=== PATIENT | female | born 1985 | race American Indian/Alaskan Native ===

== ENCOUNTER 2018-09-03 08:14 | Emergency (ER) | payer OTHER ==
[2018-09-03] MEDS ORDERED: NACL 0.9% 1000 ML 1,000 ML IV ONE (09:12)
[2018-09-03 09:42] LABS: Basophils % (Auto) 0.6 % (0.0-1.8); Eosinophils # (Auto) 0.1 K/mm3 (0.0-0.4); Hematocrit 37.2 % (30.3-42.9); Hemoglobin 12.2 gm/dl (10.1-14.3); Lymphocytes # (Auto) 1.9 K/mm3 (1.2-5.4); Lymphocytes % (Auto) 26.4 % (13.4-35.0); Mean Corpuscular HGB Conc 33 % (30-34); Mean Corpuscular Volume 85 fl (79-97); Monocytes # (Auto) 0.5 K/mm3 (0.0-0.8); Monocytes % (Auto) 6.3 % (0.0-7.3); Platelet Count 280 K/mm3 (140-440); Red Cell Distribution Width 15.3 % (13.2-15.2)
[2018-09-03 09:56] LABS: Alanine Aminotransferase 11 units/L (7-56); Albumin 3.5 g/dL (3.9-5); BUN/Creatinine Ratio 17; Blood Urea Nitrogen 10 mg/dL (7-17); Calcium 8.3 mg/dL (8.4-10.2); Hemolysis Index 3
[2018-09-03] MEDS ORDERED: ZOFRAN IV ONE (10:00)
[2018-09-03] MEDS ORDERED: ANTIVERT PO ONE (10:00)
--- NOTE | 2018-09-03 10:02 | Emergency Department Report ---
ED General Adult HPI - General Chief complaint: Dizziness Stated complaint: NAUSEA/DIZZY/DIARRHEA Time Seen by Provider: 09/03/18 09:47 Source: patient Mode of arrival: Ambulatory Limitations: No Limitations - History of Present Illness Initial comments: Patient is a 33-year-old asthmatic female who does have a history of vertigo who is complaining of some dizziness this morning. Patient states that her symptoms are worse when she closes her eyes and lays flat. Patient feels better with sitting up or. Patient denies any sinus congestion sore throat headache fevers or chills. Patient has had some nausea and diarrhea for the past 3 days. She denies any abdominal pain at this time. Patient states she is not actively vomiting she just feels some mild nausea and the nausea is worse when she is laying flat and she started feeling dizzy. Patient describes her dizziness as a spinning sensation. Severity scale (0 -10): 0 - Related Data Previous Rx's Medication Instructions Recorded Last Taken Type Diphenoxylate HCl/Atropine 1 each PO BID PRN #10 tablet 09/03/18 Unknown Rx [Lomotil 2.5-0.025 mg Tablet] Meclizine [Antivert] 25 mg PO TID PRN #10 tablet 09/03/18 Unknown Rx Allergies Allergy/AdvReac Type Severity Reaction Status Date / Time No Known Allergies Allergy Verified 09/03/18 08:19 ED Review of Systems ROS: Stated complaint: NAUSEA/DIZZY/DIARRHEA Other details as noted in HPI Comment: All other systems reviewed and negative ED Past Medical Hx - Social History Smoking Status: Never Smoker Substance Use Type: None - Medications Home Medications: Home Medications Medication Instructions Recorded Confirmed Last Taken Type Diphenoxylate HCl/Atropine 1 each PO BID PRN #10 tablet 09/03/18 Unknown Rx [Lomotil 2.5-0.025 mg Tablet] Meclizine [Antivert] 25 mg PO TID PRN #10 tablet 09/03/18 Unknown Rx ED Physical Exam - General Limitations: No Limitations General appearance: alert, in no apparent distress - Head Head exam: Present: atraumatic, normocephalic - Eye Eye exam: Present: normal appearance - ENT ENT exam: Present: mucous membranes moist - Neck Neck exam: Present: normal inspection - Respiratory Respiratory exam: Present: normal lung sounds bilaterally. Absent: respiratory distress, wheezes, rales, rhonchi - Cardiovascular Cardiovascular Exam: Present: regular rate, normal rhythm. Absent: systolic murmur, diastolic murmur, rubs, gallop - GI/Abdominal GI/Abdominal exam: Present: soft, normal bowel sounds. Absent: distended, tenderness, guarding, rebound, rigid - Extremities Exam Extremities exam: Present: normal inspection - Back Exam Back exam: Present: normal inspection - Neurological Exam Neurological exam: Present: alert, oriented X3 - Psychiatric Psychiatric exam: Present: normal affect, normal mood - Skin Skin exam: Present: warm, dry, intact, normal color. Absent: rash ED Course Vital Signs 09/03/18 09:11 Temperature 98.0 F Pulse Rate 78 Respiratory 18 Rate Blood Pressure 133/90 O2 Sat by Pulse 100 Oximetry ED Medical Decision Making - Lab Data Result diagrams: 09/03/18 09:31 09/03/18 09:31 - Medical Decision Making After being given the Antivert the patient's dizziness when lying flat has started to improve. The patient was hydrated as well for some possible mild dehydration secondary to a diarrheal illness. Patient feeling in improved and will be discharged home` Critical care attestation.: If time is entered above; I have spent that time in minutes in the direct care of this critically ill patient, excluding procedure time. ED Disposition Clinical Impression: Vertigo, Enteritis Disposition: DC-01 TO HOME OR SELFCARE Is pt being admited?: No Does the pt Need Aspirin: No Condition: Stable Instructions: Vertigo (ED), Gastroenteritis (ED) Referrals: QUINTIN ABBOTT MD [Primary Care Provider] - 3-5 Days Time of Disposition: 11:00
[2018-09-03 11:23] VITALS: BP 135/90
== END 2018-09-03 11:17 | disposition home or self-care (01) ==
LOC: ED 08:14
DX: K52.9 Noninfective gastroenteritis and colitis, unspecified (principal)
CPT/HCPCS: 36415; 80053; 84703; 85025; 96361; 96374; 99283; J2405; J7030